=== PATIENT | male | born 1950 | race Caucasian/White ===

== ENCOUNTER 2022-04-03 11:06 | Outpatient (REF) | payer MEDICAID, SELFPAY ==
--- NOTE | ~2022-04-03 | US_ITS ---
EXAMINATION: US RETROPERITONEAL LIMITED (RENAL ONLY) CLINICAL INFORMATION: CKD, hypertension. COMPARISON: None TECHNIQUE: Routine grayscale imaging of both kidneys was performed. In addition color ultrasound Doppler imaging of the retroperitoneum with attention to kidneys was performed. FINDINGS: RIGHT KIDNEY: 9.3 x 5.2 x 5.3 cm cm (SAG x AP x TRV). The kidney is normal in size, contour, and echogenicity. Renal cortical thickness is normal. No calculi or focal parenchymal lesions. No hydronephrosis. There is an anechoic simple cyst in lower pole measuring 1.4 x 1.4 x 0.8 cm. LEFT KIDNEY: 9.9 x 5.0 x 6.0 cm (SAG x AP x TRV). The kidney is normal in size, contour, and echogenicity. Renal cortical thickness is normal. No calculi or focal parenchymal lesions. No hydronephrosis. There is an anechoic simple cyst in upper pole measuring 1.2 x 1.4 x 1.2 cm. ON DOPPLER IMAGING: Right Kidney: Proximal renal artery velocity measures 77 cm/s, midsegment measures 122 cm/s and distal segment measures 1.9 cm/s. Renal aortic ratio measures 2.08. Average resistive index measures 0.86. Left Kidney: Proximal renal artery velocity measures 166 cm/s, midsegment measures 160 cm/s, distal segment 129 cm/s. Renal aortic ratio measures 2.68. Average resistive index measures 0.86. US/US renal BI IMPRESSION: Bilateral renal cysts. No radiopaque renal calculi or hydronephrosis. Doppler imaging reveals normal peak velocities in both renal arteries and normal renal aortic ratio. Bilateral resistive indices are borderline elevated. This could be secondary to intrarenal atherosclerotic vascular changes.
--- NOTE | ~2022-04-03 | US_ITS ---
EXAMINATION: US RETROPERITONEAL LIMITED (RENAL ONLY) CLINICAL INFORMATION: CKD, hypertension. COMPARISON: None TECHNIQUE: Routine grayscale imaging of both kidneys was performed. In addition color ultrasound Doppler imaging of the retroperitoneum with attention to kidneys was performed. FINDINGS: RIGHT KIDNEY: 9.3 x 5.2 x 5.3 cm cm (SAG x AP x TRV). The kidney is normal in size, contour, and echogenicity. Renal cortical thickness is normal. No calculi or focal parenchymal lesions. No hydronephrosis. There is an anechoic simple cyst in lower pole measuring 1.4 x 1.4 x 0.8 cm. LEFT KIDNEY: 9.9 x 5.0 x 6.0 cm (SAG x AP x TRV). The kidney is normal in size, contour, and echogenicity. Renal cortical thickness is normal. No calculi or focal parenchymal lesions. No hydronephrosis. There is an anechoic simple cyst in upper pole measuring 1.2 x 1.4 x 1.2 cm. ON DOPPLER IMAGING: Right Kidney: Proximal renal artery velocity measures 77 cm/s, midsegment measures 122 cm/s and distal segment measures 1.9 cm/s. Renal aortic ratio measures 2.08. Average resistive index measures 0.86. Left Kidney: Proximal renal artery velocity measures 166 cm/s, midsegment measures 160 cm/s, distal segment 129 cm/s. Renal aortic ratio measures 2.68. Average resistive index measures 0.86. US/US renal doppler IMPRESSION: Bilateral renal cysts. No radiopaque renal calculi or hydronephrosis. Doppler imaging reveals normal peak velocities in both renal arteries and normal renal aortic ratio. Bilateral resistive indices are borderline elevated. This could be secondary to intrarenal atherosclerotic vascular changes.
== END 2022-04-03 11:07 | disposition home or self-care (01) ==
LOC: HO.US 11:06
PROVIDERS: Visit Provider Internal Medicine Nephrology
DX: I12.9 Hypertensive chronic kidney disease with stage 1 through stage 4 chronic kidney disease, or unspecified chronic kidney disease (principal); N18.31 Chronic kidney disease, stage 3a
CPT/HCPCS: 76775; 93975

== ENCOUNTER 2022-11-25 15:05 | Outpatient (REF) | payer MEDICAID, SELFPAY ==
[2022-11-25 16:43] LABS: Anion Gap 16 (12-20); Blood Urea Nitrogen 21 mg/dL (9-16); Calcium 9.8 mg/dL (8.4-10.2); Carbon Dioxide 23 mmol/L (22-29); Chloride 107 mmol/L (96-108); Estimated Glomerular Filt Rate 40; Potassium 4.5 mmol/L (3.3-5.1); Sodium 141 mmol/L (135-145)
== END 2022-11-25 15:06 | disposition home or self-care (01) ==
LOC: HO.LAB 15:05
PROVIDERS: PCP Internal Medicine; Visit Provider Internal Medicine Nephrology
DX: I12.9 Hypertensive chronic kidney disease with stage 1 through stage 4 chronic kidney disease, or unspecified chronic kidney disease (principal); N18.31 Chronic kidney disease, stage 3a
CPT/HCPCS: 36415; 80051; 82310; 82565; 84520